=== PATIENT | male | born 1945 | race Caucasian/White ===

== ENCOUNTER → 2016-12-11 | Outpatient (CLI) | payer OTHER, BC ==
[~2016-12-11] MED LIST: ALLOPURINOL 10100 M2 PO; HALCION0.25 MG PO
--- NOTE | ~2016-12-11 | O ---
[facility] [place] [address] OPERATIVE REPORT Name: MARTINA MCCARTY [id number] Ad[facility]: 12/11/16 Attend Phys: Killian Lira MD Discharge: Date of : 47 Report #: [id number] THIS REPORT FOR: //name// CC: Killian Morgan PREOPERATIVE DIAGNOSIS: Left ureteral stone. POSTOPERATIVE DIAGNOSIS: Left ureteral stone. OPERATION PERFORMED: Shockwave lithotripsy of left ureterolithiasis. OPERATING SURGEON: Killian Lira M.D. PREOPERATIVE INDICATIONS: The patient was found to have an asymptomatic 1 cm stone in the distal left ureter. Given options he has elected shockwave lithotripsy and comes in now for procedure. DESCRIPTION OF PROCEDURE: After adequate IV sedation in the supine position, the stone was localized under fluoroscopy and given [address] of 3.7. This was done without complication. The stone appeared to have fractured nicely. He was returned to recovery in good shape following. <ELECTRONICALLY SIGNED> By: Killian Lira MD 12/25/16902 08 Killian Lira MD /nt
--- NOTE | ~2016-12-11 | EKG ---
[address] [address] ELECTROCARDIOGRAM REPORT Name: [facility]ARTINA MCCARTY [id number]: 12/11/16 Attend Phys: Killian Lira MD Discharge: Date of : 47 Report #: [id number] THIS REPORT FOR: //name// [facility] Test Date: 2016-12-11 Test Time: 10:56:14 Pat Name: MARTINA MCCARTY Department: Room: Gender: M Transportation Operations Manager: SHELBIE : 1945 Requested By: Killian Lira Order Number: [id number] MD: Berny Dupree Measurements Intervals [place] Rate: 63 P: 7 TN: 218 QRS: -28 QRSD: 87 T: 14 QT: 404 QTc: 414 Interpretive Statements Sinus rhythm Borderline prolonged TN interval Borderline left axis deviation Compared to ECG 06/22/2013 09:12:11 Sinus bradycardia no longer present Electronically Signed On 12-12-2016 7:52:04 CDT by Berny Dupree [email or web address] <ELECTRONICALLY SIGNED> By: Berny Dupree MD, [facility] 12/12/16 [id number] Berny Dupree MD, [facility] /EPI
== END ==
LOC: LITH 10:24
DX: N20.1 Calculus of ureter (principal)

== ENCOUNTER → 2017-03-19 | Outpatient (CLI) | payer OTHER, BC | END | disposition home or self-care (01) | LOC: LITH 08:41 | DX: N20.0 Calculus of kidney (principal); Z98.890 Other specified postprocedural states; Z80.52 Family history of malignant neoplasm of bladder; Z80.3 Family history of malignant neoplasm of breast; Z90.49 Acquired absence of other specified parts of digestive tract; Z88.6 Allergy status to analgesic agent ==